=== PATIENT | male | born 1940 | race Caucasian/White ===

== ENCOUNTER 2020-04-26 13:04 | Outpatient (CLI) | payer MEDICARE, OTHER ==
[~2020-04-26 13:04] MED LIST: barium sulfate 450ml oral suspension ONE
== END 2020-04-26 23:59 | disposition home or self-care (01) ==
LOC: RAD 13:04
PROVIDERS: ATTEND Internal Medicine
DX: R13.12 Dysphagia, oropharyngeal phase (principal); R47.1 Dysarthria and anarthria
CPT/HCPCS: 74230